=== PATIENT | female | born 1970 | race Two or more races ===

== ENCOUNTER 2019-06-16 02:13 | Inpatient (IN) | payer MEDICAID ==
[~2019-06-16] VITALS: Ht 154.9 cm; Wt 91.3 kg
[2019-06-16 02:39] LABS: Urine WBC None Seen /hpf (0 - 5)
[2019-06-16] MEDS ORDERED: DILTIAZEM HCL 25 MG/5 ML VIAL IV ONE ×2 (02:45→04:15)
[2019-06-16 02:51] LABS: Basophils # (auto) 0.1 uL; Basophils % (auto) 0.8 % (0.0-2.0); Eosinophils # (auto) 0.1 uL; Eosinophils % (auto) 0.8 % (0.0-7.0); Hemoglobin 15.3 g/dL (12.2-16.2); Lymphocytes # (auto) 2.6 uL; Lymphocytes % (auto) 25.1 % (10.0-50.0); Mean Corpuscular Hemoglobin 31.9 pg (28.0-32.0); Mean Corpuscular Hgb Conc. 33.9 g/dL (32.0-36.0); Mean Corpuscular Volume 94.1 fL (80.0-100.0); Monocytes # (auto) 0.6 uL; Monocytes % (auto) 5.3 % (0.0-12.0); Neutrophils # (auto) 7.1 uL; Nucleated Red Blood Cells % 0.1 %; Platelet Count (auto) 244 10^3/uL (140-450); Red Blood Cells 4.78 10^6/uL (4.0-5.20); Red Cell Distribution Width 13.2 % (11.8-14.3); White Blood Cell 10.5 10^3/uL (4.4-10.8)
[2019-06-16 02:54] LABS: Urine Bacteria NONE SEEN /hpf (None Seen); Urine Blood Negative /uL (Negative); Urine Specific Gravity 1.001 (1.001-1.035)
[2019-06-16 03:08] LABS: INR 0.96 (0.9-1.15); Partial Thromboplastin Time 27.1 sec (23.64-32.05)
[2019-06-16 03:10] LABS: Alanine Aminotransferase 23 U/L (13-56); Albumin 4.1 g/dL (3.4-5.0); Anion Gap 9 (5-15); Aspartate Aminotransferase 13 U/L (15-37); BUN/Creatinine Ratio 20.5; Blood Urea Nitrogen 18 mg/dL (7-18); Calcium 8.4 mg/dL (8.5-10.1); Carbon Dioxide 24 mmol/L (21-32); Chloride 107 mmol/L (98-107); GFR African American 88 mL/min; GFR Non-African American 73 mL/min; Glucose 156 mg/dL (74-106); Potassium 3.2 mmol/L (3.5-5.1); Sodium 140 mmol/L (136-145)
[2019-06-16 03:15] LABS: Alkaline Phosphatase 50 U/L (45-117); Bilirubin, Total 0.4 mg/dL (0.2-1.0); Total Protein 8.1 g/dL (6.4-8.2)
[2019-06-16] MEDS ORDERED: POTASSIUM EFFERVESENT TAB 25 MEQ PO ONE (04:15)
[2019-06-16] MEDS ORDERED: DILTIAZEM HCL 60 MG TAB PO ONE (05:15)
[2019-06-16] MEDS ORDERED: ACETAMINOPHEN 325 MG TAB PO PRN (06:30)
[2019-06-16] MEDS ORDERED: ONDANSETRON HCL 4 MG/2 ML VIAL IV PRN (06:30)
[2019-06-16] MEDS ORDERED: TEMAZEPAM 15 MG CAP PO PRN (06:30)
[2019-06-16] MEDS ORDERED: MORPHINE SULF INJ 2 MG/ML SYRINGE 1ML IV PRN (07:00)
[2019-06-16] MEDS ORDERED: NITROGLYCERIN 0.4 MG SL TAB SL PRN (07:00)
[2019-06-16 07:19] LABS: Cholesterol 148 mg/dL (< 200); HDL Cholesterol 34 mg/dL (40-59); LDL Cholesterol 106 mg/dL (< 100); Triglycerides 93 mg/dL (< 150)
[2019-06-16 09:00] VITALS: BP 126/71
--- NOTE | 2019-06-16 09:01 | NUR ---
Patient sitting in bed, eating breakfast at this time.
--- NOTE | 2019-06-16 10:50 | NUR ---
Family member at bedside.
[2019-06-16] MEDS: METOPROLOL TARTRATE 25 MG TAB PO SCH ×2 (10:53→22:14)
[2019-06-16] MEDS: ENOXAPARIN SOD 40 MG/0.4 ML SYRINGE SC SCH (10:53)
[2019-06-16] MEDS: FAMOTIDINE 20 MG TAB PO SCH ×2 (10:53→22:14)
[2019-06-16] MEDS: ASPirin 81 mg TAB PO SCH (10:54)
--- NOTE | 2019-06-16 12:10 | NUR ---
Dr. Patel ordered to collect urine specimen.
[2019-06-16 12:15] LABS: Alcohol, Urine < 3.0 mg/dL (0-5); Amphetamine Screen, Urine NEGATIVE (NEGATIVE); Barbiturate Scree,Urine NEGATIVE (NEGATIVE); Benzodiazephine Screen, Urine NEGATIVE (NEGATIVE); Cannabinoid Screen, Urine NEGATIVE (NEGATIVE); Cocaine Screen, Urine NEGATIVE (NEGATIVE); Opiate Scree,Urine NEGATIVE (NEGATIVE); Phencyclidine Screen, Urine NEGATIVE (NEGATIVE)
[2019-06-16 13:27] VITALS: BP 130/76
--- NOTE | 2019-06-16 17:19 | NUR ---
Dr. Geiger came over. made aware patient has Cardiology Consult for A fib w/ RVR. Dr. Geiger looked at the Telemetry reading. Dr. Geiger ordered Cardizem ER Cap 120 mg daily.
[2019-06-16 17:26] VITALS: BP 107/56
--- NOTE | 2019-06-16 19:24 | NUR ---
Opening Shift Note Received report from day shift nurse, Claudia. Assumed care of patient. Patient is awake, alert, and orientated x 4. No S/S of distress/SOB or pain. Bed is in lowest position with side rails up x 2. Bed brakes are locked and call light is with in reach. HOB is 30 degrees. Discussed POC with patient and instructed to call for assist prn. Will continue to monitor for changes Q1hr and PRN.
[2019-06-16 20:00] VITALS: BP 130/76
[2019-06-16] MEDS ORDERED: ATORVASTATIN 20 MG TAB PO SCH (22:00)
[2019-06-16 23:57] VITALS: BP 113/68
[2019-06-17 05:13] LABS: Basophils # (auto) 0 uL; Basophils % (auto) 0.4 % (0.0-2.0); Eosinophils # (auto) 0.1 uL; Eosinophils % (auto) 0.7 % (0.0-7.0); Hematocrit 41.8 % (36.0-46.0); Hemoglobin 14.3 g/dL (12.2-16.2); Lymphocytes # (auto) 1.3 uL; Mean Corpuscular Hemoglobin 31.9 pg (28.0-32.0); Mean Corpuscular Hgb Conc. 34.1 g/dL (32.0-36.0); Mean Corpuscular Volume 93.6 fL (80.0-100.0); Monocytes # (auto) 0.5 uL; Monocytes % (auto) 6.5 % (0.0-12.0); Neutrophils # (auto) 5.1 uL; Neutrophils % (auto) 73.4 % (37.0-80.0); Platelet Count (auto) 206 10^3/uL (140-450); Red Blood Cells 4.47 10^6/uL (4.0-5.20); Red Cell Distribution Width 13.2 % (11.8-14.3)
[2019-06-17 05:24] VITALS: BP 116/62
[2019-06-17 05:30] LABS: Calcium 8.6 mg/dL (8.5-10.1); Potassium 3.9 mmol/L (3.5-5.1)
[2019-06-17 05:32] LABS: BUN/Creatinine Ratio 24.6
--- NOTE | 2019-06-17 07:21 | NUR ---
closing notes endorsed care to day shift nurseRoberta.
--- NOTE | 2019-06-17 07:45 | NUR ---
Patient in bed, awake, oriented x4, no acute distress noted. Patient asked if she's going home today. Explained to patient we're still waiting for the doctor to come over to know if she's going home today.
[2019-06-17 09:00] VITALS: BP 110/58
[2019-06-17] MEDS: ENOXAPARIN SOD 40 MG/0.4 ML SYRINGE SC SCH (09:18)
[2019-06-17] MEDS: FAMOTIDINE 20 MG TAB PO SCH (09:19)
[2019-06-17] MEDS: METOPROLOL TARTRATE 25 MG TAB PO SCH (09:19)
[2019-06-17] MEDS: ASPirin 81 mg TAB PO SCH (09:19)
[2019-06-17] MEDS ORDERED: DILTIAZEM HCL 120MG ER CAP PO SCH (10:00)
--- NOTE | 2019-06-17 11:30 | NUR ---
Dr. Patel at bedside. MD to put in order for discharge, pickle sorter prescription at [facility].
[2019-06-17] MEDS ORDERED: METO25TA36 PO (11:36)
[2019-06-17] MEDS ORDERED: DILT120C12 PO (11:36)
[2019-06-17] MEDS ORDERED: RIV20T PO (11:36)
[2019-06-17 12:28] VITALS: BP 110/53
[2019-06-17 13:00] VITALS: BP 116/33
[2019-06-17 13:31] VITALS: BP 116/53
--- NOTE | 2019-06-17 14:20 | NUR ---
Discharge instructions given as ordered. Encourage to follow up with PMD as instructed. All questions and concerns addressed. Patient verbalized understanding. Medication reconciliation form completed and copy given to patient. IV removed with catheter intact, pressure dressing applied. Telemetry unit returned to ICU. Patient is ambulatory, refused to be taken to vehicle via wheelchair, patient with all personal belongings. Patient has her car keys, stated her car is parked at the hospital's parking area, she will be the one to drive. Patient has steady gait, no complaints of pain. No distress noted at time of departure.
[2019-06-17] MEDS ORDERED: RIVAROXABAN 20 MG TAB PO SCH (18:00)
== END 2019-06-17 14:20 | disposition home or self-care (01) | DRG 201 ==
LOC: ER 02:13 → TELE 02:14 → TELE-WESTW 08:55
PROVIDERS: ADMIT Nurse Practitioner; ATTEND Internal Medicine
DX: I48.0 Paroxysmal atrial fibrillation (principal); E66.01 Morbid (severe) obesity due to excess calories; E87.6 Hypokalemia; R73.9 Hyperglycemia, unspecified; E78.5 Hyperlipidemia, unspecified; Z79.899 Other long term (current) drug therapy; Z68.38 Body mass index [BMI] 38.0-38.9, adult
CPT/HCPCS: 36415; 71045; 80048; 80053; 80061; 80307; 81001; 82947; 83036; 83735; 83880; 84443; 84484; 85025; 85379; 85610; 85730; 93005; 93306; 94761; 96374; G0378